=== PATIENT | female | born 1945 | race Caucasian/White ===

== ENCOUNTER 2017-10-29 02:36 | Emergency (ER) | payer MEDICARE, BC ==
[~2017-10-29] VITALS: Ht 157.5 cm; Wt 59.3 kg
[~2017-10-29 02:36] MED LIST: ATEN-100 PO; BUDE3CAP5 PO; CIPR500T2 PO; HYDR12.56 PO; LIPI10TA PO; LORTA5 PO; METR-1 PO; SYNT75TA PO; VENL37.5 PO
[2017-10-29 02:37] VITALS: BP 144/68; PULSE 88; RESP 18; TEMP 97; O2SAT 92
[2017-10-29] MEDS ORDERED: ATEN25TA PO (02:56)
[2017-10-29] MEDS ORDERED: ATOR10TA15 PO (02:56)
[2017-10-29] MEDS ORDERED: LEVO88TA2 PO (02:56)
[2017-10-29] MEDS ORDERED: HYDR12.57 PO (02:56)
[2017-10-29] MEDS ORDERED: VENL37.5 PO (02:56)
[2017-10-29] MEDS ORDERED: PANTOPRAZOLE SODIUM 40 MG VIAL IV PUSH ONE (03:00)
[2017-10-29] MEDS ORDERED: SODIUM CHLOR 0.9% 1000 ML INJ 1,000 ML IV ONE ×2 (03:00→04:00)
[2017-10-29] MEDS ORDERED: ONDANSETRON HCL 4 MG/2 ML VIAL IV PUSH ONE (03:00)
[2017-10-29 03:29] LABS: CHLORIDE 101 MEQ/L (98-107); SODIUM (NA) 137 MEQ/L (136-145)
[2017-10-29 03:30] LABS: BASOPHIL # 0.3 TH/MM3 (0-0.2); BASOPHIL % 1.8 % (0.0-2.0); EOSINOPHIL # 0.6 TH/MM3 (0-0.4); EOSINOPHIL % 3.9 % (0.0-4.0); HEMATOCRIT 40.5 % (35.0-46.0); HEMOGLOBIN 13.9 GM/DL (11.6-15.3); LYMPH % 5.5 % (9.0-44.0); LYMPHOCYTE # 0.9 TH/MM3 (1.0-4.8); MEAN CELL VOLUME 89.9 FL (80.0-100.0); MEAN CORPUSCULAR HEMOGLOBIN 30.9 PG (27.0-34.0); MEAN CORPUSCULAR HGB CONC 34.3 % (32.0-36.0); MEAN PLATELET VOLUME 9.3 FL (7.0-11.0); MONO % 4.7 % (0.0-8.0); MONOCYTE # 0.8 TH/MM3 (0-0.9); NEUT % 84.1 % (16.0-70.0); PLATELET COUNT 294 TH/MM3 (150-450); RED BLOOD COUNT 4.51 MIL/MM3 (4.00-5.30); RED CELL DISTRIBUTION WIDTH 14.6 % (11.6-17.2); WHITE BLOOD COUNT 16.6 TH/MM3 (4.0-11.0)
[2017-10-29 03:33] LABS: ALBUMIN 3.6 GM/DL (3.4-5.0); BICARBONATE 25.8 MEQ/L (21.0-32.0); BLOOD UREA NITROGEN 48 MG/DL (7-18); CALCIUM 9.5 MG/DL (8.5-10.1); GLUCOSE,RANDOM 156 MG/DL (74-106)
[2017-10-29 03:36] LABS: ALT (GPT) 35 U/L (10-53); AST (GOT) 28 U/L (15-37); GLOMERULAR FILTRATION RATE 40 ML/MIN (>89)
[2017-10-29 03:38] LABS: TOTAL BILIRUBIN ADULT 0.2 MG/DL (0.2-1.0); TOTAL PROTEIN 7.9 GM/DL (6.4-8.2)
[2017-10-29 03:39] LABS: ALKALINE PHOSPHATASE 98 U/L (45-117)
[2017-10-29 04:58] LABS: BILIRUBIN, URINE NEG (NEG); BLOOD, URINE NEG (NEG); GLUCOSE,URINE NEG (NEG); KETONE, URINE NEG (NEG); NITRITE,URINE NEG (NEG); PH, URINE 5.5 (5.0-8.5); URINE COLOR YELLOW (YELLW/STRAW); URINE LEUKOCYTE ESTERASE TRACE (NEG)
[2017-10-29 04:59] VITALS: BP 166/71; PULSE 92; RESP 16; O2SAT 95
[2017-10-29 05:02] LABS: BACTERIA, URINE OCC /hpf; RBC, URINE 0-2 /hpf (0-3); SQUAMOUS EPITHELIAL CELL URINE 0-5 /hpf (0-5)
--- NOTE | 2017-10-29 05:24 | PD ---
HPI Chief Complaint: GI Complaint Time Seen by Provider: 02:53 Travel History International Travel<30 days: No Contact w/Intl Traveler<30days: No Traveled to known affect area: No History of Present Illness HPI 72-year-old female presented ER for evaluation of diarrhea and nausea and vomiting since last night. Patient says that she had leftover chicken the before yesterday and since then she has been having nausea vomiting and diarrhea , vomiting is nonbilious none projectile, diarrhea is nonbloody but foul- smelling. Patient has mild abdominal pain, diffuse, 3 out of 10, comes and goes , better when she gets a bowel movement. Patient has no fever chills or night sweats, no recent travel or sick contacts. PFSH Past Medical History Arthritis: No Autoimmune Disease: No Heart Rhythm Problems: No Cancer: No Cardiovascular Problems: Yes High Cholesterol: Yes Chest Pain: No Congestive Heart Failure: No Diabetes: No Diminished Hearing: No Endocrine: Yes Gastrointestinal Disorders: Yes (colitis) GERD: No Genitourinary: No Hiatal Hernia: No Hypertension: Yes Immune Disorder: No Musculoskeletal: Yes Neurologic: No Psychiatric: No Reproductive: No Respiratory: No Thyroid Disease: Yes Ulcer: No Tetanus Vaccination: > 5 Years Influenza Vaccination: Yes Past Surgical History Abdominal Surgery: No AICD: No Arteriovenous Shunt: No Cardiac Surgery: No Section: Yes Endocrine Surgery: No Eye Surgery: Yes (cataract) Genitourinary Surgery: No Gynecologic Surgery: Yes () Insulin Pump: No Joint Replacement: No Oral Surgery: No Pacemaker: No Thoracic Surgery: No Other Surgery: Yes Social History Alcohol Use: Yes (daily) Tobacco Use: Yes (3 cigs daily) Substance Use: No Allergies-Medications (Allergen,Severity, Reaction): Coded Allergies: Sulfa (Sulfonamide Antibiotics) (Verified Allergy, Severe, HIVES, 10/29/17) Reported Meds & Prescriptions Reported Meds & Active Scripts Active Reported Effexor (Venlafaxine HCl) 37.5 Mg Tab 37.5 Mg PO DAILY Levothyroxine (Levothyroxine Sodium) 88 Mcg Tab 88 Mcg PO DAILY Hydrochlorothiazide 12.5 Mg Cap 12.5 Mg PO DAILY Atorvastatin (Atorvastatin Calcium) 10 Mg Tab 10 Mg PO HS Atenolol 25 Mg Tab 25 Mg PO DAILY Review of Systems Except as stated in HPI: all other systems reviewed are Neg Physical Exam Narrative GENERAL: Alert oriented 3 no acute distress. SKIN: Focused skin assessment warm/dry. HEAD: Atraumatic. Normocephalic. EYES: Pupils equal and round. No scleral icterus. No injection or drainage. ENT: No nasal bleeding or discharge. Mucous membranes pink and moist. NECK: Trachea midline. No JVD. CARDIOVASCULAR: Regular rate and rhythm. No murmur appreciated. RESPIRATORY: No accessory muscle use. Clear to auscultation. Breath sounds equal bilaterally. GASTROINTESTINAL: Abdomen soft, non-tender, nondistended. Hepatic and splenic margins not palpable. MUSCULOSKELETAL: No obvious deformities. No clubbing. No cyanosis. No edema. NEUROLOGICAL: Awake and alert. No obvious cranial nerve deficits. Motor grossly within normal limits. Normal speech. PSYCHIATRIC: Appropriate mood and affect; insight and judgment normal. Data Data Last Documented VS Vital Signs Date Time Temp Pulse Resp B/P (MAP) Pulse Ox O2 Delivery O2 Flow Rate FiO2 10/29/17 04:59 92 16 166/71 (102) 95 Room Air 10/29/17 02:37 97.0 Orders Orders Complete Blood Count With Diff (10/29/17 02:58) Comprehensive Metabolic Panel (10/29/17 02:58) Lipase (10/29/17 02:58) Urinalysis - C+S If Indicated (10/29/17 02:58) Sodium Chlor 0.9% 1000 Ml Inj (Ns 1000 M (10/29/17 03:00) Ondansetron Inj (Zofran Inj) (10/29/17 03:00) Pantoprazole Inj (Protonix Inj) (10/29/17 03:00) Sodium Chlor 0.9% 1000 Ml Inj (Ns 1000 M (10/29/17 04:00) Basic Metabolic Panel (Bmp) (10/29/17 04:44) Labs Laboratory Tests Test 10/29/17 03:10 10/29/17 04:50 10/29/17 05:08 White Blood Count 16.6 TH/MM3 Red Blood Count 4.51 MIL/MM3 Hemoglobin 13.9 GM/DL Hematocrit 40.5 % Mean Corpuscular Volume 89.9 FL Mean Corpuscular Hemoglobin 30.9 PG Mean Corpuscular Hemoglobin Concent 34.3 % Red Cell Distribution Width 14.6 % Platelet Count 294 TH/MM3 Mean Platelet Volume 9.3 FL Neutrophils (%) (Auto) 84.1 % Lymphocytes (%) (Auto) 5.5 % Monocytes (%) (Auto) 4.7 % Eosinophils (%) (Auto) 3.9 % Basophils (%) (Auto) 1.8 % Neutrophils # (Auto) 14.0 TH/MM3 Lymphocytes # (Auto) 0.9 TH/MM3 Monocytes # (Auto) 0.8 TH/MM3 Eosinophils # (Auto) 0.6 TH/MM3 Basophils # (Auto) 0.3 TH/MM3 CBC Comment DIFF FINAL Differential Comment Blood Urea Nitrogen 48 MG/DL 41 MG/DL Creatinine 1.30 MG/DL 0.97 MG/DL Random Glucose 156 MG/DL 117 MG/DL Total Protein 7.9 GM/DL Albumin 3.6 GM/DL Calcium Level 9.5 MG/DL 7.8 MG/DL Alkaline Phosphatase 98 U/L Aspartate Amino Transf (AST/SGOT) 28 U/L Alanine Aminotransferase (ALT/SGPT) 35 U/L Total Bilirubin 0.2 MG/DL Sodium Level 137 MEQ/L 141 MEQ/L Potassium Level 3.3 MEQ/L 3.5 MEQ/L Chloride Level 101 MEQ/L 109 MEQ/L Carbon Dioxide Level 25.8 MEQ/L 23.4 MEQ/L Anion Gap 10 MEQ/L 9 MEQ/L Estimat Glomerular Filtration Rate 40 ML/MIN 57 ML/MIN Lipase 659 U/L Urine Color YELLOW Urine Turbidity CLEAR Urine pH 5.5 Urine Specific [place] 1.025 Urine Protein NEG mg/dL Urine Glucose (UA) NEG mg/dL Urine Ketones NEG mg/dL Urine Occult Blood NEG Urine Nitrite NEG Urine Bilirubin NEG Urine Urobilinogen 0.2 MG/DL Urine Leukocyte Esterase TRACE Urine RBC 0-2 /hpf Urine WBC 3-5 /hpf Urine Squamous Epithelial Cells 0-5 /hpf Urine Bacteria OCC /hpf Microscopic Urinalysis Comment CULT NOT INDICATED MDM Medical Decision Making Medical Screen Exam Complete: Yes Emergency Medical Condition: Yes Differential Diagnosis Gastroenteritis, gastritis, GERD. Narrative Course 9-year-old female presented ER for nausea vomiting and diarrhea. Vitals are stable, patient improved with 2 L of IV fluids. Initial BUN and creatinine are elevated but repeat after fluids were back to normal. Patient feels much better and stable to be discharged meanwhile give the patient Zofran for nausea and possible bacterial diarrhea. Patient unable to give us a stool sample and says that she will try the empiric antibiotics if it did not help she will come back for further evaluation. Patient understands and agrees to plan of care. Laboratory Tests Test 10/29/17 03:10 10/29/17 04:50 10/29/17 05:08 White Blood Count 16.6 TH/MM3 Red Blood Count 4.51 MIL/MM3 Hemoglobin 13.9 GM/DL Hematocrit 40.5 % Mean Corpuscular Volume 89.9 FL Mean Corpuscular Hemoglobin 30.9 PG Mean Corpuscular Hemoglobin Concent 34.3 % Red Cell Distribution Width 14.6 % Platelet Count 294 TH/MM3 Mean Platelet Volume 9.3 FL Neutrophils (%) (Auto) 84.1 % Lymphocytes (%) (Auto) 5.5 % Monocytes (%) (Auto) 4.7 % Eosinophils (%) (Auto) 3.9 % Basophils (%) (Auto) 1.8 % Neutrophils # (Auto) 14.0 TH/MM3 Lymphocytes # (Auto) 0.9 TH/MM3 Monocytes # (Auto) 0.8 TH/MM3 Eosinophils # (Auto) 0.6 TH/MM3 Basophils # (Auto) 0.3 TH/MM3 CBC Comment DIFF FINAL Differential Comment Blood Urea Nitrogen 48 MG/DL 41 MG/DL Creatinine 1.30 MG/DL 0.97 MG/DL Random Glucose 156 MG/DL 117 MG/DL Total Protein 7.9 GM/DL Albumin 3.6 GM/DL Calcium Level 9.5 MG/DL 7.8 MG/DL Alkaline Phosphatase 98 U/L Aspartate Amino Transf (AST/SGOT) 28 U/L Alanine Aminotransferase (ALT/SGPT) 35 U/L Total Bilirubin 0.2 MG/DL Sodium Level 137 MEQ/L 141 MEQ/L Potassium Level 3.3 MEQ/L 3.5 MEQ/L Chloride Level 101 MEQ/L 109 MEQ/L Carbon Dioxide Level 25.8 MEQ/L 23.4 MEQ/L Anion Gap 10 MEQ/L 9 MEQ/L Estimat Glomerular Filtration Rate 40 ML/MIN 57 ML/MIN Lipase 659 U/L Urine Color YELLOW Urine Turbidity CLEAR Urine pH 5.5 Urine Specific [place] 1.025 Urine Protein NEG mg/dL Urine Glucose (UA) NEG mg/dL Urine Ketones NEG mg/dL Urine Occult Blood NEG Urine Nitrite NEG Urine Bilirubin NEG Urine Urobilinogen 0.2 MG/DL Urine Leukocyte Esterase TRACE Urine RBC 0-2 /hpf Urine WBC 3-5 /hpf Urine Squamous Epithelial Cells 0-5 /hpf Urine Bacteria OCC /hpf Microscopic Urinalysis Comment CULT NOT INDICATED Diagnosis Primary Impression: Gastroenteritis Additional Instructions: Follow-up with primary care physician return here if symptoms change or do not improve. Scripts Ciprofloxacin (Ciprofloxacin) 500 Mg Tab 500 MG PO BID for Infection for 5 Days, #10 TAB 0 Refills Prov: Giuseppe Wahl MD 10/29/17 Ondansetron Odt (Zofran Odt) 4 Mg Tab 4 MG SL Q12HR Y for Nausea/Vomiting, #20 TAB 0 Refills Prov: Giuseppe Wahl MD 10/29/17 Disposition: 01 DISCHARGE HOME Condition: Stable Giuseppe Wahl MD Oct 29, 2017 05:24
[2017-10-29 05:29] LABS: BICARBONATE 23.4 MEQ/L (21.0-32.0); CALCIUM 7.8 MG/DL (8.5-10.1); CREATININE 0.97 MG/DL (0.50-1.00)
[2017-10-29] MEDS ORDERED: ZOFR4TAB3 SL (05:40)
[2017-10-29] MEDS ORDERED: CIPR500T2 PO (05:40)
[2017-10-29 06:02] VITALS: BP 155/63
== END 2017-10-29 06:05 | disposition home or self-care (01) ==
LOC: PHED 02:36
DX: K52.9 Noninfective gastroenteritis and colitis, unspecified (principal); I10 Essential (primary) hypertension; E07.9 Disorder of thyroid, unspecified; E78.00 Pure hypercholesterolemia, unspecified; Z72.0 Tobacco use; Z86.79 Personal history of other diseases of the circulatory system; Z87.19 Personal history of other diseases of the digestive system; Z87.39 Personal history of other diseases of the musculoskeletal system and connective tissue
CPT/HCPCS: 80053; 81001; 83690; 85025; 96361; 96374; 96375; 99284; C9113; J2405; J7030; 80048